=== PATIENT | male | born 1950 | race Caucasian/White ===

== ENCOUNTER 2018-02-28 16:10 | Inpatient (IN) ==
[2018-02-28 17:54] LABS: Basophils % 0.5 % (0.0-0.8); Eosinophils % 0.7 % (0.00-10.9); Hemoglobin 14.7 GM/DL (14.0-18.0); Immature Granulocytes % 0.5 %; Immature Granulocytes Absolute 0.02 #; Lymphocytes # 0.4 10*3/uL (1.4-4.0); Lymphocytes % 8.3 % (21.2-54.2); Mean Corpuscular HGB Conc 33.4 GM/DL (32-36); Mean Corpuscular Hemoglobin 32 PG (27-34); Mean Corpuscular Volume 96.9 FL (87-102); Mean Platelet Volume 9.6 FL (9.6-12.0); Monocytes # 0.2 10*3/uL (0.11-0.8); Neutrophils # 3.6 10*3/uL (1.4-7.4); Platelet Count 179 T/CUMM (130-400); Red Blood Count 4.54 MC/CUMM (3.8-5.5); White Blood Count 4.2 T/CUMM (4-12)
[2018-02-28] MEDS ORDERED: ONDANSETRON 4 MG/2 ML VIAL IV STA (17:56)
[2018-02-28] MEDS ORDERED: PANTOPRAZOLE 40 MG VIAL IV STA (17:56)
[2018-02-28] MEDS ORDERED: METOCLOPRAMIDE 10 MG/2 ML VIAL IV STA (17:56)
[2018-02-28 18:06] LABS: INR 1.1; PT Patient Result 11.2 SECS; Partial Thromboplastin Time 22.2 SECS (0-40)
[2018-02-28] MEDS ORDERED: METOCLOPRAMIDE 10 MG/2 ML VIAL ONE (18:25)
[2018-02-28] MEDS ORDERED: PANTOPRAZOLE 40 MG VIAL IV ONE (18:25)
[2018-02-28] MEDS ORDERED: ONDANSETRON 4 MG/2 ML VIAL ONE (18:25)
[2018-02-28] MEDS ORDERED: LEVOFLOXACIN INJ 750 MG in PREMIX 1 EACH IV STA (18:29)
[2018-02-28] MEDS ORDERED: ALBUTEROL/IPRATROPIUM 3 ML NEB RESP TX STA (18:29)
[2018-02-28] MEDS ORDERED: methylPREDNISolone SOD SUC 125 MG/2 ML VIAL IV STA (18:29)
[2018-02-28 18:34] LABS: Band Neutrophils 8 % (0-10); Lymphocytes 14 % (20-55); Macrocytosis 2+; Platelet Estimate Normal; Segmented Neutrophils 78 % (50-85); Total Cells Counted 100
[2018-02-28] MEDS ORDERED: LEVOFLOXACIN INJ 150 ML IV ONE (18:46)
[2018-02-28] MEDS ORDERED: methylPREDNISolone SOD SUC 125 MG/2 ML VIAL ONE (18:46)
[2018-02-28 19:15] LABS: Alanine Aminotransferase 35 U/L (16-61); Albumin 3.5 G/DL (3.4-5.0); Alkaline Phosphatase 57 U/L (45-117); Aspartate Amino Transferase 78 U/L (0-37); Calcium 8.8 MG/DL (8.5-10.1); Total Protein 6.8 G/DL (6.4-8.3)
[2018-02-28 19:16] LABS: Blood Urea Nitrogen 31 MG/DL (7-18); Glucose 117 MG/DL (74-106)
[2018-02-28 19:17] LABS: Troponin I Only < 0.015 NG/ML (0.00-0.045)
[2018-02-28 19:22] LABS: Osmolality,Calculated 290.1 MOS/KG (273-304); Potassium 4.3 MMOL/L (3.5-5.1); Sodium 142 MMOL/L (136-145)
[2018-03-01] MEDS ORDERED: ONDANSETRON 4 MG/2 ML VIAL IV PRN (00:11)
[2018-03-01] MEDS ORDERED: MYLANTA/LIDO VISC/DIPH 300 ML BOTTLE SWISH/SWAL PRN (00:14)
[2018-03-01] MEDS ORDERED: ALBUTEROL/IPRATROPIUM 3 ML NEB RESP TX PRN (00:14)
[2018-03-01] MEDS: SODIUM CHLORIDE 0.9% 1,000 ML IV SCH ×2 (01:25→15:40)
[2018-03-01 06:20] LABS: Basophils % 0.2 % (0.0-0.8); Hematocrit 38.5 VOL% (42.0-52.0); Immature Granulocytes % 0.6 %; Immature Granulocytes Absolute 0.08 #; Lymphocytes # 0.8 10*3/uL (1.4-4.0); Lymphocytes % 6.2 % (21.2-54.2); Mean Corpuscular HGB Conc 33.8 GM/DL (32-36); Mean Corpuscular Hemoglobin 33 PG (27-34); Mean Corpuscular Volume 97.5 FL (87-102); Monocytes # 0.9 10*3/uL (0.11-0.8); Monocytes % 6.9 % (1.7-12.7); Neutrophils # 10.8 10*3/uL (1.4-7.4); Neutrophils % 86.1 % (38.7-73.9); Platelet Count 170 T/CUMM (130-400); Red Blood Count 3.95 MC/CUMM (3.8-5.5); White Blood Count 12.5 T/CUMM (4-12)
[2018-03-01 06:42] LABS: Band Neutrophils 18 % (0-10); Hypochromasia 1+; Lymphocytes 8 % (20-55); Metamyelocytes 4 %; Segmented Neutrophils 62 % (50-85); Total Cells Counted 100
[2018-03-01] MEDS: LEVOTHYROXINE 175 MCG TABLET PO SCH (06:42)
[2018-03-01 06:43] LABS: Macrocytosis 1+; Platelet Estimate Adequate
[2018-03-01 07:05] LABS: Calcium 8.5 MG/DL (8.5-10.1); Osmolality,Calculated 288.3 MOS/KG (273-304); Thyroid Stimulating Hormone 3.6 uIU/ml (0.358-3.74)
[2018-03-01] MEDS: CYANOCOBALAMIN 500 MCG TABLET PO SCH (08:33)
[2018-03-01] MEDS: VENLAFAXINE XR 75 MG CAPSULE PO SCH (08:33)
[2018-03-01] MEDS: GABAPENTIN 600 MG TABLET PO SCH ×3 (08:33→20:42)
[2018-03-01] MEDS: ASCORBIC ACID 500 MG TABLET PO SCH ×2 (08:33→20:41)
[2018-03-01] MEDS: ENOXAPARIN 40 MG/0.4 ML SYRINGE SUBCUT SCH (08:33)
[2018-03-01] MEDS: FERROUS SULFATE 325 MG TABLET PO SCH ×2 (08:34→17:27)
[2018-03-01] MEDS ORDERED: LEVOFLOXACIN INJ 750 MG in PREMIX 1 EACH IV SCH (21:00)
[2018-03-02] MEDS: SODIUM CHLORIDE 0.9% 1,000 ML IV SCH (05:21)
[2018-03-02] MEDS: LEVOTHYROXINE 175 MCG TABLET PO SCH (06:01)
[2018-03-02 07:31] VITALS: BP 108/62
[2018-03-02] MEDS: VENLAFAXINE XR 75 MG CAPSULE PO SCH (08:49)
[2018-03-02] MEDS: GABAPENTIN 600 MG TABLET PO SCH (08:49)
[2018-03-02] MEDS: FERROUS SULFATE 325 MG TABLET PO SCH (08:49)
[2018-03-02] MEDS: ENOXAPARIN 40 MG/0.4 ML SYRINGE SUBCUT SCH (08:50)
[2018-03-02] MEDS: CYANOCOBALAMIN 500 MCG TABLET PO SCH (08:50)
[2018-03-02] MEDS: ASCORBIC ACID 500 MG TABLET PO SCH (08:50)
== END 2018-03-02 10:30 | disposition home or self-care (01) | DRG 195 ==
LOC: N.ED 16:10 → N.EDINP 21:06 → SUATTDRO 21:06 → N.2E 21:28
PROVIDERS: ADMIT Internal Medicine; ATTEND Internal Medicine Cardiovascular Disease